=== PATIENT | male | born 1945 | race Caucasian/White ===

== ENCOUNTER 2016-09-23 20:08 | Emergency (ER) | payer OTHER, MEDICAID ==
[~2016-09-23 20:08] MED LIST: APAP/HYDROCODON1 T13 PO; BP MED; BPH; DOC-Q-LACE100 MG PO; ELA25 PO; PAN PO; PRILOSEC20 MG PO
[2016-09-23 21:48] LABS: CALCIUM 9.3 mg/dL (8.5-10.1); CARBON DIOXIDE 24.7 mmol/L (21-32); CREATININE SERUM 1.3 mg/dL (0.7-1.3); POTASSIUM SERUM 3.9 mmol/L (3.5-5.1)
[2016-09-23 21:50] LABS: BASOPHIL % 0.4 % (0-2); PLATELET COUNT 308 x10^3mcL (130-400)
[2016-09-23 21:52] LABS: ALBUMIN 4.1 g/dL (3.4-5.0); BILIRUBIN TOTAL 0.5 mg/dL (0.20-1.00); RED CELL DISTRIBUTION WIDTH 21.8 % (11.5-14.5); TOTAL PROTEIN, SERUM 7.6 g/dL (6.4-8.2)
[2016-09-24 00:09] VITALS: BP 132/70
== END 2016-09-24 00:09 | disposition home or self-care (01) ==
LOC: ED 20:08
PROVIDERS: Emergency Medicine
DX: R10.13 Epigastric pain (principal); I10 Essential (primary) hypertension; Z88.5 Allergy status to narcotic agent
CPT/HCPCS: G0480; J2405; J3411; J3475; J3490; J7030

== ENCOUNTER 2017-04-24 08:09 | Inpatient (IN) | payer OTHER, MEDICAID ==
[~2017-04-24] VITALS: Ht 165.1 cm; Wt 68.2 kg
[2017-04-24] VITALS (7 sets, daily range): BP systolic 95–109; BP diastolic 52–64
[2017-04-24 10:07] LABS: PLATELET COUNT 242 x10^3mcL (130-400)
[2017-04-24 10:09] LABS: BASOPHIL % 0 % (0-2); RED CELL DISTRIBUTION WIDTH 25.3 % (11.5-14.5)
[2017-04-24 10:13] LABS: CALCIUM 8.3 mg/dL (8.5-10.1); CARBON DIOXIDE 18.1 mmol/L (21-32); CREATININE SERUM 1.3 mg/dL (0.7-1.3); POTASSIUM SERUM 4.2 mmol/L (3.5-5.1)
[2017-04-24 10:24] LABS: ALBUMIN 3.8 g/dL (3.4-5.0); BILIRUBIN TOTAL 0.3 mg/dL (0.20-1.00); C REACTIVE PROTEIN 8.9 mg/dL (<=0.9); TOTAL PROTEIN, SERUM 7.9 g/dL (6.4-8.2)
[2017-04-24 10:27] LABS: CK-MB 3.2 ng/mL (0-3.6)
[2017-04-24 10:28] LABS: FREE T4 1.01 ng/dL (0.76-1.46); T3 TOTAL 0.62 ng/mL; T4(THYROXINE) 5.5 ug/dL (4.7-13.3)
[2017-04-24 10:37] LABS: microscopic required? YES; urine erythrocyte 2+ (NEGATIVE)
[2017-04-24 10:51] LABS: rbc morphology (normal/abnorm) ABNORMAL (NORMAL)
[2017-04-24 11:07] LABS: ERYTHROCYTE SED RATE 33 mm/hr (0-20)
[2017-04-24] MEDS ORDERED: ENALAPRIL MALEAT5 MG PO (11:27)
[2017-04-24] MEDS ORDERED: FLOMAX0.4 MG PO (11:28)
[2017-04-24] MEDS ORDERED: OMEPRAZOLE20 M3 PO (11:28)
[2017-04-24 13:41] LABS: AMPHETAMINE QUAL UR NONE DETECTED (NEG <=1000)
[2017-04-25 04:30] VITALS: BP 105/62
[2017-04-25 07:21] LABS: PLATELET COUNT 199 x10^3mcL (130-400)
[2017-04-25 07:22] LABS: BASOPHIL % 0 % (0-2); RED CELL DISTRIBUTION WIDTH 24.9 % (11.5-14.5)
[2017-04-25 07:26] LABS: rbc morphology (normal/abnorm) ABNORMAL (NORMAL)
[2017-04-25 07:59] LABS: ALKALINE PHOSPHATASE 60 U/L (46-116); ALT/SGPT 26 U/L (16-63); AST/SGOT 41 U/L (15-37); CHLORIDE SERUM 102 mmol/L (98-107); CREATININE SERUM 1.1 mg/dL (0.7-1.3); GFR1 > 60 mL/min; GLUCOSE SERUM 109 mg/dL (74-106); POTASSIUM SERUM 3.9 mmol/L (3.5-5.1); SODIUM SERUM 136 mmol/L (136-145); TOTAL PROTEIN, SERUM 6.4 g/dL (6.4-8.2)
[2017-04-25 08:03] LABS: ALBUMIN 3.2 g/dL (3.4-5.0)
[2017-04-25 09:14] VITALS: BP 117/63
[2017-04-25 13:40] VITALS: BP 104/62
[2017-04-25 16:27] VITALS: BP 95/55
[2017-04-25 20:36] VITALS: BP 101/63
[2017-04-26 05:06] VITALS: BP 116/72
[2017-04-26 07:18] LABS: PLATELET COUNT 198 x10^3mcL (130-400); RED CELL DISTRIBUTION WIDTH 25.2 % (11.5-14.5)
[2017-04-26 07:23] LABS: CALCIUM 8.2 mg/dL (8.5-10.1); CARBON DIOXIDE 26.6 mmol/L (21-32); CHLORIDE SERUM 102 mmol/L (98-107); CREATININE SERUM 1.1 mg/dL (0.7-1.3); GFR1 > 60 mL/min; GLUCOSE SERUM 95 mg/dL (74-106); SODIUM SERUM 138 mmol/L (136-145)
[2017-04-26 09:20] VITALS: BP 130/84
[2017-04-26 09:27] LABS: ATYPICAL LYMPH 5 %; BAND NEUTROPHIL 5 % (0-10); BASOPHIL 0 % (0-2); MONOCYTE 6 % (0-7); SEGMENTED NEUTROPHILS 79 % (37-75)
[2017-04-26 09:29] LABS: PLATELET MORPHOLOGY PLATELETS DECREASED; rbc morphology (normal/abnorm) ABNORMAL (NORMAL)
[2017-04-26 13:32] VITALS: BP 119/76
[2017-04-26 17:14] VITALS: BP 117/66
[2017-04-27 05:46] VITALS: BP 115/64
[2017-04-27 05:52] VITALS: BP 115/64
[2017-04-27 06:23] LABS: PLATELET COUNT 224 x10^3mcL (130-400)
[2017-04-27 06:55] LABS: CARBON DIOXIDE 28.3 mmol/L (21-32); CHLORIDE SERUM 101 mmol/L (98-107); GFR1 > 60 mL/min; GLUCOSE SERUM 105 mg/dL (74-106); POTASSIUM SERUM 4.3 mmol/L (3.5-5.1); SODIUM SERUM 138 mmol/L (136-145)
[2017-04-27 09:19] VITALS: BP 122/72
[2017-04-27 10:29] VITALS: BP 122/72
[2017-04-27 11:19] LABS: ATYPICAL LYMPH 4 %; BAND NEUTROPHIL 5 % (0-10); BASOPHIL 0 % (0-2); MONOCYTE 10 % (0-7); SEGMENTED NEUTROPHILS 62 % (37-75)
[2017-04-27 11:21] LABS: rbc morphology (normal/abnorm) ABNORMAL (NORMAL)
[2017-04-27 11:22] LABS: schistocyte (helmet cell) 1+
[2017-04-27 11:23] LABS: PLATELET MORPHOLOGY PLATELETS NORMAL; target cell (codocyte) 1+
[2017-04-27 14:35] VITALS: BP 130/72
[2017-04-27 16:28] VITALS: BP 130/72
== END 2017-04-27 17:00 | disposition home health service (06) | DRG 299 ==
LOC: ED 08:09 → DU 10:29
PROVIDERS: Internal Medicine; Internal Medicine Pulmonary Disease; Specialist
PROC: 30233N1 Transfusion of Nonautologous Red Blood Cells into Peripheral Vein, Percutaneous Approach (ICD-10-PCS; 2017-04-24)
PROC: 0DB78ZX Excision of Stomach, Pylorus, Via Natural or Artificial Opening Endoscopic, Diagnostic (ICD-10-PCS; principal; 2017-04-25 12:30)
PROC: 0W3P8ZZ Control Bleeding in Gastrointestinal Tract, Via Natural or Artificial Opening Endoscopic (ICD-10-PCS; 2017-04-25 12:30)
DX: Q27.33 Arteriovenous malformation of digestive system vessel (principal); K31.811 Angiodysplasia of stomach and duodenum with bleeding; K22.10 Ulcer of esophagus without bleeding; N39.0 Urinary tract infection, site not specified; K92.2 Gastrointestinal hemorrhage, unspecified; K29.00 Acute gastritis without bleeding; D50.0 Iron deficiency anemia secondary to blood loss (chronic); R50.9 Fever, unspecified; I10 Essential (primary) hypertension; M51.26 Other intervertebral disc displacement, lumbar region; M47.896 Other spondylosis, lumbar region; G89.29 Other chronic pain; D64.9 Anemia, unspecified
CPT/HCPCS: 36600; 43239; 83880; 84439; 87804; 90658; 97110-GP; 97116-GP; 97530-GP; C9113; G0480; J0696; J1200; J1610; J1956; J2250; J2270; J2310; J2405; J3010; J3411; J3475; J3490; J7030; J7050; J7620; P9016; Q0092; Q0163

== ENCOUNTER 2017-05-08 10:09 | Observation (INO) | payer OTHER, MEDICAID ==
[~2017-05-08] VITALS: Ht 165.1 cm; Wt 72.8 kg
[~2017-05-08 10:09] MED LIST changes: +ENALAPRIL MALEAT5 MG PO; +FLOMAX0.4 MG PO; +OMEPRAZOLE20 M3 PO
[2017-05-08 10:14] VITALS: Ht 165.1 cm; Wt 72.8 kg
[2017-05-08 10:56] LABS: BASOPHIL % 0.9 % (0-2)
[2017-05-08 10:59] LABS: RED CELL DISTRIBUTION WIDTH 27.3 % (11.5-14.5)
[2017-05-08 11:03] LABS: PLATELET COUNT 920 x10^3mcL (130-400); rbc morphology (normal/abnorm) ABNORMAL (NORMAL)
[2017-05-08 11:06] LABS: CALCIUM 9.1 mg/dL (8.5-10.1); CARBON DIOXIDE 27.1 mmol/L (21-32); CHLORIDE SERUM 104 mmol/L (98-107); CREATININE SERUM 1.1 mg/dL (0.7-1.3); GFR1 > 60 mL/min; GLUCOSE SERUM 103 mg/dL (74-106); SODIUM SERUM 139 mmol/L (136-145)
[2017-05-08 11:10] LABS: ALBUMIN 3.5 g/dL (3.4-5.0); ALKALINE PHOSPHATASE 75 U/L (46-116); ALT/SGPT 17 U/L (16-63); AST/SGOT 15 U/L (15-37); BILIRUBIN TOTAL 0.43 mg/dL (0.20-1.00); LIPASE 118 IU/L (73-393); TOTAL PROTEIN, SERUM 7.4 g/dL (6.4-8.2)
[2017-05-08 15:50] VITALS: BP 127/67
[2017-05-08 18:16] LABS: microscopic required? NO
[2017-05-08 18:35] LABS: UA SPECIFIC GRAVITY 1.025 (1.005-1.035); urine erythrocyte NEGATIVE (NEGATIVE)
[2017-05-08 20:35] VITALS: BP 129/78
[2017-05-09 05:05] VITALS: BP 134/80
[2017-05-09 06:26] LABS: CALCIUM 8.9 mg/dL (8.5-10.1); CARBON DIOXIDE 25.9 mmol/L (21-32); CHLORIDE SERUM 105 mmol/L (98-107); CREATININE SERUM 1.2 mg/dL (0.7-1.3); GFR1 > 60 mL/min; GLUCOSE SERUM 88 mg/dL (74-106); POTASSIUM SERUM 3.9 mmol/L (3.5-5.1); SODIUM SERUM 140 mmol/L (136-145)
[2017-05-09 07:25] LABS: RED CELL DISTRIBUTION WIDTH 27.4 % (11.5-14.5)
[2017-05-09 07:27] LABS: PLATELET COUNT 765 x10^3mcL (130-400)
[2017-05-09 09:08] VITALS: BP 130/78; BP 130/781
[2017-05-09 10:14] LABS: ATYPICAL LYMPH 5 %; MONOCYTE 9 % (0-7); SEGMENTED NEUTROPHILS 58 % (37-75)
[2017-05-09 10:15] LABS: PLATELET MORPHOLOGY PLATELETS INCREASED; rbc morphology (normal/abnorm) ABNORMAL (NORMAL)
[2017-05-09 17:26] VITALS: BP 108/61
[2017-05-09 20:27] VITALS: BP 113/68
[2017-05-09 22:22] VITALS: BP 126/73
[2017-05-10 06:35] VITALS: BP 123/70
[2017-05-10 10:50] VITALS: BP 117/78
[2017-05-10 16:08] VITALS: BP 117/78
== END 2017-05-10 18:20 | disposition home health service (06) | DRG 74 ==
LOC: ED 10:09 → MU 14:31
PROVIDERS: Emergency Medicine; Internal Medicine
DX: G62.1 Alcoholic polyneuropathy (principal); M51.16 Intervertebral disc disorders with radiculopathy, lumbar region; N40.0 Benign prostatic hyperplasia without lower urinary tract symptoms; D47.3 Essential (hemorrhagic) thrombocythemia; I12.9 Hypertensive chronic kidney disease with stage 1 through stage 4 chronic kidney disease, or unspecified chronic kidney disease; N18.9 Chronic kidney disease, unspecified; F10.20 Alcohol dependence, uncomplicated
CPT/HCPCS: 97110-GP; 97116-GP; 97530-GP; G0378; J1885; J2270; J7030